=== PATIENT | male | born 1995 | race American Indian/Alaskan Native ===

== ENCOUNTER 2019-01-21 15:59 | Emergency (ER) | payer SELFPAY ==
--- NOTE | 2019-01-21 16:15 | Emergency Department Report ---
ED Rash HPI - HPI Chief Complaint: Allergic Reaction Stated Complaint: ALLERGIC REACTION Time Seen by Provider: 01/21/19 16:10 Location: Chest, Back, Abdomen, Upper Extremities Rash Symptoms: Yes Itching, No Facial Swelling, No Tongue/Oral Swelling, No Breathing Difficulties, No Choking Sensation, No Wheezing/Dyspnea, No Peeling, No Blistering, No Fever, No Lightheaded, No Malaise, No Myalgias Severity: mild Other History: c/o of spontaneous erruption of rash to arms and body spreading as it itches and works. no fever. benadryl no help ED Review of Systems ROS: Stated complaint: ALLERGIC REACTION Other details as noted in HPI Constitutional: denies: chills, fever Eyes: denies: eye pain, eye discharge, vision change ENT: denies: ear pain, throat pain Respiratory: denies: cough, shortness of breath, wheezing Cardiovascular: denies: chest pain, palpitations Endocrine: no symptoms reported Gastrointestinal: denies: abdominal pain, nausea, diarrhea Genitourinary: denies: urgency, dysuria Musculoskeletal: denies: back pain, joint swelling, arthralgia Skin: rash, pruritus. denies: lesions, change in color, change in hair/nails Neurological: denies: headache, weakness, paresthesias Psychiatric: denies: anxiety, depression Hematological/Lymphatic: denies: easy bleeding, easy bruising ED Past Medical Hx - Past Medical History Hx Asthma: Yes - Social History Smoking Status: Never Smoker Substance Use Type: Alcohol - Medications Home Medications: Home Medications Medication Instructions Recorded Confirmed Last Taken Type ALBUTEROL Inhaler (OR & NICU) 2 puff IH QID PRN #1 inhalation 06/15/18 Unknown Rx [ProAir HFA Inhaler] Montelukast [Singulair] 10 mg PO QPM #14 tablet 06/15/18 Unknown Rx predniSONE [Prednisone] 50 mg PO DAILY #5 tablet 06/15/18 Unknown Rx Chlorhexidine Gluconate [Hibiclens] 10 ml TP BID #240 liquid 01/21/19 Unknown Rx Mupirocin [Bactroban 2%] 15 applic TP TID #30 gm 01/21/19 Unknown Rx Sulfamethoxazole/Trimethoprim 1 each PO BID #20 tablet 01/21/19 Unknown Rx [Bactrim Ds] hydrOXYzine HCL [Atarax] 25 mg PO Q6HR PRN #20 tablet 01/21/19 Unknown Rx predniSONE [Deltasone] 50 mg PO QDAY #5 tab 01/21/19 Unknown Rx Rash Exam - Exam General: Vital signs noted. No distress. Alert and acting appropriately. HEENT: No Periorbital Edema, No Conjuctival Injection, No Chemosis, No Perioral Edema, No Tongue Edema, No Uvular Edema, No Compromised Airway, No Drooling Lungs: Yes Good Air Exchange (Normal Breath Sounds), No Wheezes, No Ronchi, No Stridor, No Cough, No Labored Respirations, No Retractions, No Use of Accessory Muscles, No Other Abnormal Lung Sounds Heart: Yes Regular, No Murmur Skin: Yes Maculopapular Rash (umbilicated rash to body with few pustules noted in follicular regions), Yes Erythema, No Morbilliform rash, No Bulla(e), No Excoriations, No Weeping, No Tenderness, No Encrustations, No Other Other: Positive: Abdomen Normal, Neurologic Normal, Musculoskeletal Normal Critical care attestation.: If time is entered above; I have spent that time in minutes in the direct care of this critically ill patient, excluding procedure time. ED Disposition Clinical Impression: Rash and nonspecific skin eruption Disposition: DC- TO HOME OR SELFCARE Is pt being admited?: No Does the pt Need Aspirin: No Condition: Stable Instructions: Acute Rash (ED) Prescriptions: hydrOXYzine HCL [Atarax] 25 mg PO Q6HR PRN #20 tablet PRN Reason: Itching Sulfamethoxazole/Trimethoprim [Bactrim Ds] 1 each PO BID #20 tablet Mupirocin [Bactroban 2%] 15 applic TP TID #30 gm predniSONE [Deltasone] 50 mg PO QDAY #5 tab Chlorhexidine Gluconate [Hibiclens] 10 ml TP BID #240 liquid
[2019-01-21 16:16] VITALS: BP 115/79
== END 2019-01-21 16:30 | disposition home or self-care (01) ==
LOC: ED 15:59
DX: R21 Rash and other nonspecific skin eruption (principal); L29.9 Pruritus, unspecified; J45.909 Unspecified asthma, uncomplicated
CPT/HCPCS: 99282

== ENCOUNTER 2020-03-19 07:38 | Emergency (ER) | payer SELFPAY ==
--- NOTE | 2020-03-19 08:10 | XRay Report ---
CHEST 2 VIEWS INDICATION: cough and shortness of breath. COMPARISON: None. FINDINGS: Support devices: None. Heart: Within normal limits. Lungs/Pleura: No acute air space or interstitial disease. No significant pleural effusion. IMPRESSION: No acute findings. Signer Name: Jaswinder Pang MD Signed: 03/19/2020 8:05 AM Workstation Name: [id number]
[2020-03-19 09:30] VITALS: BP 133/84
[2020-03-19] MEDS ORDERED: IPRATROPIUM/ALBUTEROL SULFATE 3 ML AMPUL.NEB IH STA (09:39)
[2020-03-19] MEDS ORDERED: predniSONE 50 MG TAB PO STA (09:39)
--- NOTE | 2020-03-19 09:44 | Emergency Department Report ---
ED Asthma HPI - General Chief Complaint: Upper Respiratory Infection Stated Complaint: ASTHMA Time Seen by Provider: 03/19/20 09:23 Source: patient Mode of arrival: Ambulatory Limitations: No Limitations - History of Present Illness Initial Comments: 24-year-old -[place] male with a past medical history of asthma presents emergency department complaining of having a 1 day history of progressively worsening cough and with mucus production associated with wheezing and episodes of shortness of breath and fever sensation. States he cannot emergency department last night he was advised to go home and take Tylenol and Motrin but states that that did not mitigate his symptoms or returns for further evaluation and treatment options. Reports no hemoptysis no hematemesis no hematochezia. No abdominal pain no constipation no diarrhea. States that he did take his home medication which does help his symptoms but does not resolve MD Complaint: shortness of breath, wheezing -: Gradual Severity: mild Context: recent URI Associated Symptoms: none - Related Data Previous Rx's Medication Instructions Recorded Last Taken Type Albuterol Mdi (or & Nicu Only) 2 puff IH QID PRN #1 inhalation 06/15/18 Unknown Rx [ProAir HFA Inhaler] Montelukast [Singulair] 10 mg PO QPM #14 tablet 06/15/18 Unknown Rx predniSONE [Prednisone] 50 mg PO DAILY #5 tablet 06/15/18 Unknown Rx Chlorhexidine Gluconate [Hibiclens] 10 ml TP BID #240 liquid 01/21/19 Unknown Rx Mupirocin [Bactroban 2%] 15 applic TP TID #30 gm 01/21/19 Unknown Rx Sulfamethoxazole/Trimethoprim 1 each PO BID #20 tablet 01/21/19 Unknown Rx [Bactrim Ds] hydrOXYzine HCL [Atarax] 25 mg PO Q6HR PRN #20 tablet 01/21/19 Unknown Rx predniSONE [Deltasone] 50 mg PO QDAY #5 tab 01/21/19 Unknown Rx Albuterol Mdi (or & Nicu Only) 2 puff IH QID PRN #1 inhalation 03/19/20 Unknown Rx [ProAir HFA Inhaler] Azithromycin [Zithromax] 500 mg PO QDAY #5 tablet 03/19/20 Unknown Rx Montelukast [Singulair] 10 mg PO QPM #14 tablet 03/19/20 Unknown Rx predniSONE [Deltasone] 50 mg PO QDAY #5 tab 03/19/20 Unknown Rx Allergies Allergy/AdvReac Type Severity Reaction Status Date / Time No Known Allergies Allergy Verified 03/19/20 07:44 ED Review of Systems ROS: Stated complaint: ASTHMA Other details as noted in HPI Comment: All other systems reviewed and negative ED Past Medical Hx - Past Medical History Previous Medical History?: Yes Hx Asthma: Yes - Surgical History Past Surgical History?: No - Social History Smoking Status: Current Some Day Smoker Substance Use Type: Alcohol, Marijuana - Medications Home Medications: Home Medications Medication Instructions Recorded Confirmed Last Taken Type Albuterol Mdi (or & Nicu Only) 2 puff IH QID PRN #1 inhalation 06/15/18 Unknown Rx [ProAir HFA Inhaler] Montelukast [Singulair] 10 mg PO QPM #14 tablet 06/15/18 Unknown Rx predniSONE [Prednisone] 50 mg PO DAILY #5 tablet 06/15/18 Unknown Rx Chlorhexidine Gluconate [Hibiclens] 10 ml TP BID #240 liquid 01/21/19 Unknown Rx Mupirocin [Bactroban 2%] 15 applic TP TID #30 gm 01/21/19 Unknown Rx Sulfamethoxazole/Trimethoprim 1 each PO BID #20 tablet 01/21/19 Unknown Rx [Bactrim Ds] hydrOXYzine HCL [Atarax] 25 mg PO Q6HR PRN #20 tablet 01/21/19 Unknown Rx predniSONE [Deltasone] 50 mg PO QDAY #5 tab 01/21/19 Unknown Rx Albuterol Mdi (or & Nicu Only) 2 puff IH QID PRN #1 inhalation 03/19/20 Unknown Rx [ProAir HFA Inhaler] Azithromycin [Zithromax] 500 mg PO QDAY #5 tablet 03/19/20 Unknown Rx Montelukast [Singulair] 10 mg PO QPM #14 tablet 03/19/20 Unknown Rx predniSONE [Deltasone] 50 mg PO QDAY #5 tab 03/19/20 Unknown Rx ED Physical Exam - General Limitations: No Limitations General appearance: alert, in no apparent distress - Head Head exam: Present: atraumatic, normocephalic - Eye Eye exam: Present: normal appearance, PERRL, EOMI - ENT ENT exam: Present: mucous membranes moist - Neck Neck exam: Present: normal inspection - Respiratory Respiratory exam: Present: normal lung sounds bilaterally, wheezes, rhonchi. Absent: respiratory distress, chest wall tenderness, accessory muscle use, decreased breath sounds - Cardiovascular Cardiovascular Exam: Present: regular rate, normal rhythm. Absent: systolic murmur, diastolic murmur, rubs, gallop - GI/Abdominal GI/Abdominal exam: Present: soft, normal bowel sounds - Rectal Rectal exam: Present: deferred - Extremities Exam Extremities exam: Present: normal inspection - Back Exam Back exam: Present: normal inspection - Neurological Exam Neurological exam: Present: alert, oriented X3 - Psychiatric Psychiatric exam: Present: normal affect, normal mood - Skin Skin exam: Present: warm, dry, intact, normal color. Absent: rash ED Course Vital Signs 03/19/20 03/19/20 07:48 09:27 Temperature 98.4 F 101.5 F H Pulse Rate 117 H 113 H Respiratory 18 22 Rate Blood Pressure 131/73 133/84 O2 Sat by Pulse 92 93 Oximetry ED Medical Decision Making - Radiology Data Radiology results: report reviewed Referring Physician:MARIAA SORENSENPatient Name:YOCASTA HOWEPatient ID:[id number] of :[id number]:MaleAccession:[id number] Date:[id number] Status:[place] [address] XRay Report Signed Patient: YOCASTA HOWE MR#: [id number] : 1995 Acct:[id number] Age/Sex: 24 / M ADM Date: 03/19/20 Loc: ED Attending Dr: Ordering Physician: MARIAA SORENSEN MD Date of Service: 03/19/20 Procedure(s): XR chest routine 2V Accession Number(s): [id number] cc: MARIAA SORENSEN MD Fluoro Time In Minutes: CHEST 2 VIEWS INDICATION: cough and shortness of breath. COMPARISON: None. FINDINGS: Support devices: None. Heart: Within normal limits. Lungs/Pleura: No acute air space or interstitial disease. No significant pleural effusion. IMPRESSION: No acute findings. Signer Name: Jaswinder Pang MD Signed: 03/19/2020 8:05 AM Workstation Name: [id number] Transcribed By: ES Dictated By: Jaswinder Pang MD Electronically Authenticated By: Jaswinder Pang MD Signed Date/Time: 03/19/20804 DD/ 4 TD/TT: - Medical Decision Making No altered mental status, saddle respirations, belly breathing or other signs of impending ventilatory failure. No intubations or recent admissions to the hospital for asthma. Unlikely pneumonia, CHF, COPD, GERD Workup Review include a chest x-ray which was normal she also received steroids and albuterol Therapies: Prednisone 50 mg PO. Albuterol nebulizer Reassessment: Patient improved with albuterol and ipratropium in less than 3 hours. Disposition: Discharge home with return precautions. Encouraged follow-up as the chest x-ray is clear his symptoms associated with fever might indicate a lag in the chest x-ray associated Advised to follow up with primary care physician within next 24-48 hours. Aside from this acute exacerbation patient has been well controlled on baseline home regimen. Rx short steroid course, albuterol, Singulair, Flovent this patient presents with lower respiratory symptoms concerning for viral syndrome including flu. Patient does not meet criteria for COVID-19. Doubt pneumonia, sepsis or other serious bacterial infection or acute emergent condition. Is otherwise well- appearing with acceptable vitals and reassuring physical examination and is safe to be discharged home. Patient lacks serious medical comorbidities that would require admission. Patient is nontoxic and although symptomatic otherwise safe to go home. Will provide strict return precautions and instructions on self isolation/quarantine and anticipatory guidance. Critical care attestation.: If time is entered above; I have spent that time in minutes in the direct care of this critically ill patient, excluding procedure time. ED Disposition Clinical Impression: Fever, Asthma Disposition: DC-01 TO HOME OR SELFCARE Is pt being admited?: No Does the pt Need Aspirin: No Condition: Stable Instructions: Asthma (ED), Reactive Airways Disease (ED), Viral Syndrome (ED) Prescriptions: predniSONE [Deltasone] 50 mg PO QDAY #5 tab Albuterol Mdi (or & Nicu Only) [ProAir HFA Inhaler] 2 puff IH QID PRN #1 inhalation PRN Reason: Shortness Of Breath Montelukast [Singulair] 10 mg PO QPM #14 tablet Azithromycin [Zithromax] 500 mg PO QDAY #5 tablet Referrals: PRIMARY CARE, [Primary Care Provider] - 3-5 Days MEHUL WORKMAN MD [Staff Physician] - 3-5 Days [facility] [Provider Group] - 3-5 Days
== END 2020-03-19 10:47 | disposition home or self-care (01) ==
LOC: ED 07:38
DX: J45.909 Unspecified asthma, uncomplicated (principal); R07.9 Chest pain, unspecified; F17.200 Nicotine dependence, unspecified, uncomplicated; F12.90 Cannabis use, unspecified, uncomplicated; Z79.899 Other long term (current) drug therapy
CPT/HCPCS: 71046; 94640; 99283; J7512